=== PATIENT | female | born 1955 | race Two or more races ===

== ENCOUNTER 2024-12-05 19:00 | Emergency (ER) | payer MEDICARE, BC | END 2024-12-05 21:54 | disposition home or self-care (01) | LOC: JP.ED 19:00 | DX: S52.502A Unspecified fracture of the lower end of left radius, initial encounter for closed fracture (principal); W18.30XA Fall on same level, unspecified, initial encounter; Y93.73 Activity, racquet and hand sports | CPT/HCPCS: 29125; 73110-26-LT; 73110-LT; 99283-25 ==